=== PATIENT | male | born 1960 | race Caucasian/White ===

== ENCOUNTER 2017-03-14 15:41 | Inpatient (IN) | payer MEDICARE, MEDICAID ==
[~2017-03-14] VITALS: Ht 167.6 cm; Wt 66.4 kg
[2017-03-14] MEDS ORDERED: IPRATROPIUM 0.5MG/ALBUTEROL 2.5MG INH SOL UD 3ML (DUONEB)(J7620) NEB PRN (19:00)
[2017-03-14 19:25] VITALS: BP 159/97
[2017-03-14 20:00] VITALS: BP 121/78
[2017-03-14] MEDS ORDERED: ASPI1TAB PO (20:12)
[2017-03-14] MEDS ORDERED: DILT1TAB3 PO (20:12)
[2017-03-14] MEDS ORDERED: ALBU17IN INH (20:12)
[2017-03-14] MEDS ORDERED: SERT-138 PO (20:12)
[2017-03-14] MEDS ORDERED: NITR4TASL SL (20:12)
[2017-03-14] MEDS ORDERED: BUSP10TA PO (20:12)
[2017-03-14] MEDS ORDERED: FURO40TA2 PO (20:12)
[2017-03-14] MEDS ORDERED: ALBU83IN INH (20:12)
[2017-03-14 20:18] LABS: BASO % 0.1 % (0.0-1.0); LARGE UNSTAINED CELL % 0.2 % (0.0-4.0); LYMPH # 0.3 K/mm3 (1.5-4.5); LYMPH % 4.2 % (24.0-44.0); MEAN CORPUSCULAR HEMOGLOBIN 31.5 pg (27.0-33.0); MEAN CORPUSCULAR HGB CONC 33.8 g/dl (32.0-36.5); MEAN CORPUSCULAR VOLUME 93.2 fl (80.0-96.0); MONO # 0.3 K/mm3 (0.0-0.8); MONO % 3.2 % (0.0-5.0); NEUTROPHILS # 7.3 K/mm3 (1.8-7.7); NEUTROPHILS % 92.3 % (36.0-66.0); PLATELET COUNT, AUTOMATED 141 k/mm3 (150-450); RED CELL DISTRIBUTION WIDTH 13.1 % (11.5-14.5)
[2017-03-14 20:20] LABS: INR 1.04
[2017-03-14 20:28] LABS: ALBUMIN/GLOBULIN RATIO 1.38 (1.00-1.93); ALKALINE PHOSPHATASE 70 U/L (45-117); ALT/SGPT 25 U/L (12-78); AST/SGOT 46 U/L (15-37); BILIRUBIN,TOTAL 0.4 MG/DL (0.2-1.0); BLOOD UREA NITROGEN 16 MG/DL (7-18); CALCIUM LEVEL 9.3 MG/DL (8.5-10.1); CHLORIDE LEVEL 83 MEQ/L (98-107); CHOLESTEROL LEVEL 159 MG/DL (< 200); CREATININE FOR GFR 1.12 MG/DL (0.70-1.30); GLOMERULAR FILTRATION RATE > 60.0 (>56); GLUCOSE, FASTING 140 MG/DL (70-105); MAGNESIUM LEVEL 1.7 MG/DL (1.8-2.4); PHOSPHORUS LEVEL 2.8 MG/DL (2.5-4.9); POTASSIUM SERUM 3.5 MEQ/L (3.5-5.1); SODIUM LEVEL 134 MEQ/L (136-145); THYROXINE (T4) 7.3 UG/DL (4.5-12.0); TOTAL PROTEIN 6.9 GM/DL (6.4-8.2); TRIGLYCERIDES LEVEL 75 MG/DL (<150)
[2017-03-14 20:30] VITALS: BP 128/90
[2017-03-14 20:34] LABS: T UPTAKE 35 % (33-40)
[2017-03-14] MEDS: IPRATROPIUM 0.5MG/ALBUTEROL 2.5MG INH SOL UD 3ML (DUONEB)(J7620) NEB SCH (20:40)
[2017-03-14 21:00] VITALS: BP 130/71
[2017-03-14 21:01] LABS: ANION GAP 2 MEQ/L (8-16); CARBON DIOXIDE LEVEL 49 MEQ/L (21-32)
[2017-03-14 21:09] LABS: ABG PARTIAL PRESSURE O2 92.6 mmHg (75.0-100.0); ABG TOTAL CO2 47.4 MEQ/L (22.0-29.0); ABG pH (ARTERIAL) 7.383 UNITS (7.350-7.450)
[2017-03-14 21:11] LABS: ABG PARTIAL PRESSURE CO2 77.3 mmHg (35.0-45.0)
[2017-03-14] MEDS ORDERED: POTASSIUM CHLORIDE 10 MEQ SR TABLET PO ONE (21:30)
[2017-03-14] MEDS ORDERED: MAG SULF 1GM/100ML (MAG RUN) 1 GM in APPROPRIATE DILUENT 1 EA IV ONE (21:45)
[2017-03-14] MEDS ORDERED: NITROGLYCERIN 0.4 MG SUBL TABLET SL PRN (22:30)
[2017-03-14 23:00] VITALS: BP 149/76
[2017-03-14] MEDS: FUROSEMIDE 40 MG TAB PO SCH (23:00)
[2017-03-14] MEDS: busPIRone 10 MG TAB PO SCH (23:00)
--- NOTE | 2017-03-14 23:07 | HPEPDOC ---
General Date of Admission Mar 14, 2017 at 19:21 Other Providers Primary care provider: Dr. Gray in [place], [place] Bluing Oven Tender: Dr. Martinez in [facility] Database Modeler: Dr. Reyes in [facility] Chief Complaint The patient is a 56-year-old male admitted with a reason for visit of Respiratory Distress. Source: Patient, Family Exam Limitations: No limitations History of Present Illness Mr. Pham is a 56-year-old male who was [facility] to [facility]. He had been having some respiratory distress and anxiety yesterday morning, therefore he had taken some additional doses of Ativan, this clearly did not help his respiratory distress therefore he presented to the emergency department at [facility], he was given flumazenil which significantly improved his symptoms. He was admitted overnight, and apparently was still lethargic and had low saturations in the morning, therefore he was transferred to [facility] for evaluation by director sanitation bureau, and for fear of impending necessity for possible intubation/ mechanical ventilation. Abdomen baseline, the patient is only able to ambulate perhaps 20 feet, up from the bed to the kitchen table and back really. He is on 2 L oxygen at home chronically. Apparently he has had 2 sleep studies in the past, and his director sanitation bureau and rob oliva is already arranging for him to have home CPAP , but the equipment has not arrived yet. He does see his wave guide assembler Dr. Martinez in [facility], and apparently has had an echocardiogram within the last 6 months , no known diagnosis of CHF. Home Medications Scheduled Aspirin (Aspirin 81) 81 Mg Tab, 81 MG PO DAILY, (Reported) Buspirone HCl (Buspirone HCl) 10 Mg Tab, 10 MG PO TID, (Reported) Diltiazem HCl (Diltiazem HCl ER) 240 Mg Tab, 240 MG PO DAILY, (Reported) Furosemide (Furosemide) 40 Mg Tab, 40 MG PO BID, (Reported) Sertraline HCl (Sertraline HCl) 100 Mg Tab, 200 MG PO QHS, (Reported) Scheduled PRN Albuterol Sulfate (Ventolin Hfa) 200 Puff/8 Gm Aers, 2 PUFF INH QID PRN for SHORTNESS OF BREATH, (Reported) Albuterol Sulfate (Albuterol Sulfate) 2.5 Mg/3 Ml Nebu, 2.5 MG INH Q4H PRN for SHORTNESS OF BREATH, (Reported) Nitroglycerin (Nitrostat) 0.4 Mg Subl, 0.4 MG SL Q5MP PRN for CHEST PAIN, ( Reported) Allergies Coded Allergies: Clindamycin (Verified Allergy, Mild, Chest Pain, Rash, 03/14/17) Past Medical History Medical History COPD Hypertension Anxiety Depression GERD Surgical History Knee surgery in the 80s Elbow surgery as a child Appendectomy 2010 Family History His father suffered from hypertension, diabetes mellitus, and a myocardial infarction and in his 70s. His mother apparently had a lung disease that she acquired in [place] and she was put on lots of antibiotics for many months multiple times during her life, when asked if she had tuberculosis, they are not sure. 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 He denies any asbestos exposure. Possible TB exposure from his mother as described above. Review of Symptoms Constitutional: Reports: Night Sweats, Denies: Chills, Fever Eyes: Denies: Pain, Vision change ENT: Denies: Head Aches, Ear Pain, Dysphagia Skin: Denies: Rash, Lesions, Breakdown Pulmonary: Reports: Dyspnea, Denies: Cough Cardiovascular: Denies: Chest Pain, Palpitations, Orthopnea, Paroxysmal Noc. Dyspnea, Lt Headedness Gastrointestinal: Denies: Nausea, Vomiting, Abdominal Pain, Diarrhea Genitourinary: Denies: Dysuria, Frequency, Incontinence, Retention Hematologic: Denies: Bruising, Bleeding Excessively Neurological: Denies: Weakness, Numbness, Change in speech, Confusion Psych: Reports: Mood Normal, Denies: Depression, Memory Issues Physical Examination General Exam: Positive: Alert, Cooperative, No Acute Distress Eye Exam: Positive: Conjunctiva & lids normal, EOMI, Negative: Sclera icteric ENT Exam: Positive: Atraumatic, Mucous membr. moist/pink, Pharynx Normal Neck Exam: Positive: Supple, Negative: JVD, thyromegaly Chest Exam: Positive: Diminished (significantly diminished throughout with poor air movement) Heart Exam: Positive: Tachycardic, Other (distant heart sounds) Telemetry: Positive: Tachycardia (with multiple PACs) Abdomen Exam: Positive: Normal bowel sounds, Soft, Negative: Tenderness, Hepatospenomegaly Extremity Exam: Positive: Normal pulses, Negative: Clubbing, Cyanosis, Edema Skin Exam: Positive: Nl turgor and temperature, Negative: Breakdown, Lesion Neuro Exam: Positive: Normal Speech, Cranial Nerves 3-12 NL Psych Exam: Positive: Mental status NL, Mood NL, Oriented x 3 Vital Signs Vital Signs Date Time Temp Pulse Resp B/P (MAP) Pulse Ox O2 Delivery O2 Flow Rate FiO2 03/14/17 21:00 111 130/71 (90) 03/14/17 20:30 91 03/14/17 20:00 98.6 03/14/17 19:43 Nasal Cannula 3.0 Laboratory Data Labs 24H Laboratory Tests 2 03/14/17 19:48: Lactic Acid Level 1.7, Ammonia 21 03/14/17 19:50: White Blood Count 8.0, Red Blood Count 4.29L, Hemoglobin 13.5L, Hematocrit 40.0L , Mean Corpuscular Volume 93.2, Mean Corpuscular Hemoglobin 31.5, Mean Corpuscular Hemoglobin Concent 33.8, Red Cell Distribution Width 13.1, Platelet Count 141L, Neutrophils (%) (Auto) 92.3H, Lymphocytes (%) (Auto) 4.2L, Monocytes (%) (Auto) 3.2, Eosinophils (%) (Auto) 0.0, Basophils (%) (Auto) 0.1, Neutrophils # (Auto) 7.3, Lymphocytes # (Auto) 0.3L, Monocytes # (Auto) 0.3, Eosinophils # (Auto) 0.0, Basophils # (Auto) 0.0, Large Unclassified Cells % 0.2 , Large Unclassified Cells # 0.0, Prothrombin Time 13.7, Prothromb Time International Ratio 1.04, Anion Gap 2L, Glomerular Filtration Rate > 60.0, Blood Urea Nitrogen 16, Creatinine 1.12, Sodium Level 134L, Potassium Level 3.5 , Chloride Level 83L, Carbon Dioxide Level 49H, Calcium Level 9.3, Phosphorus Level 2.8, Aspartate Amino Transf (AST/SGOT) 46H, Alanine Aminotransferase (ALT/ SGPT) 25, Lactate Dehydrogenase 185, Total Creatine Kinase 416H, Alkaline Phosphatase 70, Total Bilirubin 0.4, Triglycerides Level 75, Cholesterol Level 159, Total Protein 6.9, Albumin 4.0, Magnesium Level 1.7L, Creatine Kinase MB 2.6, Creatine Kinase MB Relative Index 0.62, Troponin I < 0.02, C-Reactive Protein, Quantitative < 0.30, B-Type Natriuretic Peptide 257H, Albumin/Globulin Ratio 1.38, Thyroid Stimulating Hormone (TSH) 1.040, Free Thyroxine Index 2.6, Thyroxine (T4) 7.3, Triiodothyronine (T3) Uptake 35 03/14/17 20:33: Blood Gas Bicarbonate Standard 40.0H, Arterial Blood pH 7.383, Arterial Blood Partial Pressure CO2 77.3*H, Arterial Blood Partial Pressure O2 92.6, Arterial Blood Total CO2 47.4H, Arterial Blood HCO3 45.0H, Arterial Blood Base Excess 16.0H, Arterial Blood Oxygen Saturation 96.7 03/14/17 20:48: Urine Appearance CLEAR, Urine Color YELLOW, Urine pH 6.0, Urine Specific [place] 1.012, Urine Protein NEGATIVE, Urine Glucose (UA) NEGATIVE, Urine Ketones NEGATIVE, Urine Urobilinogen 0.2, Urine Bilirubin NEGATIVE, Urine Leukocyte Esterase NEGATIVE, Urine Blood 1+H, Urine Nitrite NEGATIVE, Urine WBC (Auto) 3, Urine RBC (Auto) 3, Urine Hyaline Casts (Auto) 0, Urine Bacteria (Auto ) NEGATIVE, Urine Squamous Epithelial Cells 0, Urine Sperm (Auto) CBC/BMP Laboratory Tests 03/14/17 19:50 Red Blood Count 4.29 L, Mean Corpuscular Volume 93.2, Mean Corpuscular Hemoglobin 31.5, Mean Corpuscular Hemoglobin Concent 33.8, Red Cell Distribution Width 13.1, Neutrophils (%) (Auto) 92.3 H, Lymphocytes (%) (Auto) 4.2 L, Monocytes (%) (Auto) 3.2, Eosinophils (%) (Auto) 0.0, Basophils (%) (Auto ) 0.1, Neutrophils # (Auto) 7.3, Lymphocytes # (Auto) 0.3 L, Monocytes # (Auto) 0.3, Eosinophils # (Auto) 0.0, Basophils # (Auto) 0.0, Calcium Level 9.3, Phosphorus Level 2.8, Aspartate Amino Transf (AST/SGOT) 46 H, Alanine Aminotransferase (ALT/SGPT) 25, Lactate Dehydrogenase 185, Total Creatine Kinase 416 H, Alkaline Phosphatase 70, Total Bilirubin 0.4, Triglycerides Level 75, Cholesterol Level 159, Total Protein 6.9, Albumin 4.0 Microbiology Microbiology 03/14/17 Blood Culture, Received Pending 03/14/17 Blood Culture, Received Pending 03/14/17 Respiratory Virus Panel (PCR) ([facility]), Received Pending 03/14/17 Urine Culture, Received Pending Problems (1) Acute respiratory failure with hypoxia and hypercarbia Status: Acute (2) Electrolyte abnormality Status: Acute (3) COPD (chronic obstructive pulmonary disease) Status: Chronic (4) Hypertension Status: Chronic (5) Anxiety and depression Status: Chronic (6) GERD (gastroesophageal reflux disease) Status: Chronic Plan / VTE VTE Prophylaxis Ordered?: Yes Plan Plan Upon my evaluation, the patient's respiratory status appears to be significantly improved. He is still tachycardic, and is requiring oxygen. His ABG indicates chronic respiratory failure with appropriate compensation at this time. Because he is compensated, there is no need for starting him on noninvasive positive pressure ventilation at this time. We will put him on scheduled and PRN nebs, steroids, as well as his home doses of Advair and Tudorza or their equivalent from our formulary. Mag has been replaced, and a dose of potassium given as well. Respiratory panel was ordered and came back negative. Blood cultures, urine culture, and sputum cultures still pending. Just to be safe we will cycle cardiac markers 3 every 8 hours. We also already spoken with pulmonology who has already given us some recommendations, their input is greatly appreciated. Of note, the patient did fill out a most form and does wish to be a DNR (no chest compressions), but is willing to attempt a trial period of intubation and mechanical ventilation should this be necessary. GME ATTESTATION GME ATTESTATION My preceptor for this patient encounter was physically present in the building during the encounter and was fully available. As needed, all aspects of the patient interview, examination, medical decision making process, and medical care plan development were reviewed and approved by the preceptor. Preceptor is aware and concurs with the plan as stated in the body of this note and will attest to such by his/her cosignature. ATTENDING NOTE I have both independently examined this patient as well as reviewed the H&P. I have discussed in detail with the resident the findings and plan of treatment as documented in the residents note. I will continue to follow the patient and offer further guidance to the patients care as necessary during this hospital stay. ALEE Hancock MD, DO Mar 14, 2017 23:07 CURT DOLL MD Mar 15, 2017 18:39
[2017-03-14] MEDS: ADVAIR HFA 230/21MCG INHALER INH SCH (23:15)
[2017-03-14] MEDS: methylPREDNISolone INJ 125 MG/2 ML VIAL (J2930) IV SCH (23:45)
[2017-03-15] VITALS (10 sets, daily range): BP systolic 95–136; BP diastolic 67–81
[2017-03-15] MEDS: IPRATROPIUM 0.5MG/ALBUTEROL 2.5MG INH SOL UD 3ML (DUONEB)(J7620) NEB SCH ×5 (01:01→23:17)
[2017-03-15 04:49] LABS: ADD MANUAL DIFFER YES; MEAN CORPUSCULAR HEMOGLOBIN 31.6 pg (27.0-33.0); MEAN CORPUSCULAR HGB CONC 33.3 g/dl (32.0-36.5); MEAN CORPUSCULAR VOLUME 94.7 fl (80.0-96.0); PLATELET COUNT, AUTOMATED 130 k/mm3 (150-450); RED CELL DISTRIBUTION WIDTH 13.1 % (11.5-14.5)
[2017-03-15 05:04] LABS: ALBUMIN 3.3 GM/DL (3.2-5.2); ALBUMIN/GLOBULIN RATIO 1.14 (1.00-1.93); ALKALINE PHOSPHATASE 57 U/L (45-117); ALT/SGPT 25 U/L (12-78); AST/SGOT 47 U/L (15-37); BILIRUBIN,TOTAL 0.3 MG/DL (0.2-1.0); BLOOD UREA NITROGEN 17 MG/DL (7-18); CALCIUM LEVEL 8.8 MG/DL (8.5-10.1); CHLORIDE LEVEL 85 MEQ/L (98-107); CREATININE FOR GFR 0.94 MG/DL (0.70-1.30); GLOMERULAR FILTRATION RATE > 60.0 (>56); GLUCOSE, FASTING 137 MG/DL (70-105); POTASSIUM SERUM 4.1 MEQ/L (3.5-5.1); SODIUM LEVEL 137 MEQ/L (136-145); TOTAL PROTEIN 6.2 GM/DL (6.4-8.2)
[2017-03-15 05:16] LABS: ANION GAP 3 MEQ/L (8-16)
[2017-03-15 05:18] LABS: CARBON DIOXIDE LEVEL 49 MEQ/L (21-32)
[2017-03-15 05:32] LABS: BANDS 2 % (< 11)
[2017-03-15] MEDS: methylPREDNISolone INJ 125 MG/2 ML VIAL (J2930) IV SCH ×4 (06:03→23:46)
--- NOTE | 2017-03-15 07:24 | REP ---
Portable chest, 08:34 p.m., two AP views with the patient upright: The lung elise are clear. The cardiac size is normal. The manuel, mediastinum, and bony thorax are unremarkable. Impression: Negative portable chest. Signed by Kyle Fletcher MD 03/15/2017 07:15 A
[2017-03-15] MEDS: TIOTROPIUM INHALER/CAPSULE (SPIRIVA) INH SCH (07:49)
[2017-03-15] MEDS: ADVAIR HFA 230/21MCG INHALER INH SCH ×2 (07:49→19:43)
[2017-03-15] MEDS: ASPIRIN 81 MG ENTERIC TAB PO SCH (08:04)
[2017-03-15] MEDS: FUROSEMIDE 40 MG TAB PO SCH (08:04)
[2017-03-15] MEDS: busPIRone 10 MG TAB PO SCH ×3 (08:04→20:26)
[2017-03-15] MEDS: ENOXAPARIN 40 MG/0.4 ML SYRINGE (J1650) SC SCH (08:05)
[2017-03-15] MEDS: AZITHROMYCIN 250 MG TAB PO SCH (14:28)
[2017-03-15] MEDS: THEOPHYLLINE (THEO-24) 100MG SR **CAPSULE PO SCH (14:28)
--- NOTE | 2017-03-15 14:57 | IPN ---
DATE: 03/15/2017 SUBJECTIVE: Patient seen and examined in the room today. Patient still complaining about chest tightness. He feels he still needs assistance with breathing. No events noted overnight. Currently the patient's oxygen saturation is being maintained with nasal cannula 2-4 liters nasal cannula. OBJECTIVE: VITAL SIGNS: Temperature 97.4, pulse is 86, respirations 22, blood pressure 119/76, pulse oximetry 98% with 2 liters nasal cannula. GENERAL: No signs of acute distress. Alert and oriented times three. HEENT: Normocephalic, atraumatic. CARDIOVASCULAR: Distant heart sounds. Positive S1 and S2, regular rate. RESPIRATORY: Poor respiratory efforts. Very diminished breath sounds. ABDOMEN: Soft, nontender, nondistended. EXTREMITIES: No edema. No cyanosis. LABORATORY DATA: WBC 8, hemoglobin 12.8, hematocrit 38.5, platelet count 130. Sodium is 137, potassium 4.1, chloride 86, carbon dioxide 49, BUN 17, creatinine 0.94, GFR greater than 60, fasting glucose 137, calcium 8.8, magnesium 2, total bilirubin 0.3, AST 47, ALT 25, alkaline phosphatase 57, total CK is 214, Troponin I is less than 0.02. C-reactive protein is less than 0.3. Total protein 6.2. Albumin 3.3. Blood cultures are pending. ASSESSMENT/PLAN: 1. Acute on chronic respiratory failure with hypoxia and hypercapnia. The patient's current symptoms are probably due to the Ativan the patient received prior to current hospitalization. The patient was observed in the ICU overnight. The patient does not require escalation of the oxygen support. Director Of Search Engine Optimization Dr. Chandler has been assisting on the case. 2. Chronic obstructive pulmonary disease (COPD). At baseline, patient is using 2 liters nasal cannula. Patient is currently on breathing treatments and IV steroids and azithromycin. Patient also has rebreather treatment as needed. 3. Hypertension. Blood pressure is in satisfactory range. Patient taking diltiazem 240 mg by mouth daily, Lasix 40 mg by mouth daily. 4. Anxiety/depression. Patient is on buspirone 10 mg by mouth three times a day. Due to the patient's decreased alertness and awakeness previously, Zoloft was on hold. 5. Gastroesophageal reflux disease (GERD). 6. Deep vein thrombosis (DVT) prophylaxis. Patient is on Lovenox. MTDD
--- NOTE | 2017-03-15 19:02 | ECGEPIP ---
Stationary ECG Study [facility] Test Date: 2017-03-14 Pat Name: SUZANNE GOLDSMITH Department: PCU Room: [place] [address] Gender: M Hvac Field Service Technician: [place] : 1960 Requested By: CAROLINA DE GUZMAN Order Number: [id number] Reading MD: Paulie Espinal Measurements Intervals [place] Rate: 111 P: 84 NC: 136 QRS: 73 QRSD: 83 T: 74 QT: 323 QTc: 440 Interpretive Statements SINUS TACHYCARDIA WITH FREQUENT SUPRAVENTRICULAR PREMATURE COMPLEXES ABNORMAL RHYTHM ECG No prior tracing for comparison. Clinical correlation advised Electronically Signed On 03-15-2017 19:01:47 EDT by Paulie Espinal
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
[2017-03-16 06:00] VITALS: BP 155/88
[2017-03-16] MEDS: methylPREDNISolone INJ 125 MG/2 ML VIAL (J2930) IV SCH (06:04)
[2017-03-16 06:20] LABS: BASO % 0.2 % (0.0-1.0); LARGE UNSTAINED CELL # 0.1 K/mm3 (0.0-0.4); LARGE UNSTAINED CELL % 0.4 % (0.0-4.0); LYMPH # 0.4 K/mm3 (1.5-4.5); LYMPH % 3.4 % (24.0-44.0); MEAN CORPUSCULAR HEMOGLOBIN 31.2 pg (27.0-33.0); MEAN CORPUSCULAR HGB CONC 32.6 g/dl (32.0-36.5); MEAN CORPUSCULAR VOLUME 95.7 fl (80.0-96.0); MONO # 0.4 K/mm3 (0.0-0.8); MONO % 3.6 % (0.0-5.0); NEUTROPHILS # 9.9 K/mm3 (1.8-7.7); NEUTROPHILS % 92.3 % (36.0-66.0); PLATELET COUNT, AUTOMATED 149 k/mm3 (150-450); RED CELL DISTRIBUTION WIDTH 13.1 % (11.5-14.5); WHITE BLOOD COUNT 10.7 K/mm3 (4.0-10.0)
[2017-03-16 06:36] LABS: ALBUMIN 3.4 GM/DL (3.2-5.2); ALBUMIN/GLOBULIN RATIO 1.13 (1.00-1.93); ALKALINE PHOSPHATASE 56 U/L (45-117); ALT/SGPT 27 U/L (12-78); AST/SGOT 36 U/L (15-37); BILIRUBIN,TOTAL 0.3 MG/DL (0.2-1.0); BLOOD UREA NITROGEN 23 MG/DL (7-18); CALCIUM LEVEL 9.1 MG/DL (8.5-10.1); CHLORIDE LEVEL 82 MEQ/L (98-107); CREATININE FOR GFR 0.95 MG/DL (0.70-1.30); GLOMERULAR FILTRATION RATE > 60.0 (>56); GLUCOSE, FASTING 143 MG/DL (70-105); MAGNESIUM LEVEL 2.1 MG/DL (1.8-2.4); POTASSIUM SERUM 3.7 MEQ/L (3.5-5.1); SODIUM LEVEL 134 MEQ/L (136-145); TOTAL PROTEIN 6.4 GM/DL (6.4-8.2)
[2017-03-16 06:47] LABS: CARBON DIOXIDE LEVEL 53 MEQ/L (21-32)
[2017-03-16] MEDS: TIOTROPIUM INHALER/CAPSULE (SPIRIVA) INH SCH (07:18)
[2017-03-16] MEDS: ADVAIR HFA 230/21MCG INHALER INH SCH (07:18)
[2017-03-16] MEDS: IPRATROPIUM 0.5MG/ALBUTEROL 2.5MG INH SOL UD 3ML (DUONEB)(J7620) NEB SCH (07:19)
[2017-03-16] MEDS ORDERED: THEO1TAB3 PO (08:11)
[2017-03-16] MEDS ORDERED: AZIT250T8 PO (08:11)
[2017-03-16] MEDS: ENOXAPARIN 40 MG/0.4 ML SYRINGE (J1650) SC SCH (08:37)
[2017-03-16 08:38] VITALS: BP 155/88
[2017-03-16] MEDS: ASPIRIN 81 MG ENTERIC TAB PO SCH (08:38)
[2017-03-16] MEDS: AZITHROMYCIN 250 MG TAB PO SCH (08:38)
[2017-03-16] MEDS: THEOPHYLLINE (THEO-24) 100MG SR **CAPSULE PO SCH (08:38)
[2017-03-16] MEDS: busPIRone 10 MG TAB PO SCH (08:39)
[2017-03-16] MEDS ORDERED: FUROSEMIDE 40 MG TAB PO SCH (09:00)
--- NOTE | 2017-03-16 18:30 | DSES ---
DATE OF ADMISSION: 03/14/2017 DATE OF DISCHARGE: 03/16/2017 PRIMARY CARE PROVIDER: Dr. Gray in [place], [place]. OUTPATIENT LIVESTOCK HANDLER: Dr. Reyes in [facility]. CONSULTANTS: Profiling Machine Set Up Operator Tool, Dr. Chandler PROCEDURES: None. COMPLICATIONS: None. DISCHARGE DIAGNOSES: 1. Advanced end-stage chronic obstructive pulmonary disease. Baseline oxygen requirement 2 liters. 2. Pulmonary cachexia. 3. Obstructive sleep apnea. 4. Acute on chronic respiratory failure with hypercapnia. 5. Anxiety/depression. 6. Gastroesophageal reflux disease. HOSPITALIZATION COURSE: Patient is a 56-year-old male [facility] on 03/14/2017 for upper level care. Prior to patient's admission, patient took an extra dose of Ativan. Due to concern for possible intubation/mechanical ventilation, patient was transferred to [facility] for further evaluation and treatment. After arrival, the grader operator, Dr. Chandler, has been consulted, and the patient is admitted to the intensive care unit (ICU). Prior to patient's arrival, patient also has been given flumazenil, which has improved his symptoms. Patient's medication has been adjusted with assistance with the grader operator. Patient does not show any escalation of oxygen requirement, and patient did not show the need for mechanical ventilation. On 03/16/2017, patient's physical condition returned to his baseline. Patient determined medically stable for discharge with recommendation to continue trial of new medication, and patient recommended to establish with a primary care provider in 7-10 days. It is highly recommended patient receive a pulmonary rehabilitation referral from the primary care physician (PCP). OBJECTIVE: VITAL SIGNS: Temperature is 95.9, pulse is 83, respiratory rate 18, blood pressure 155/88, pulse oximetry 92% with 2 liter nasal cannula. LABORATORY DATA: WBC 10.7, hemoglobin 13.6, hematocrit 41.7, platelet count is 149. Sodium 134, potassium 3.7, chloride is 82, carbon dioxide 53, BUN 23, creatinine 0.95, GFR greater than 60, fasting glucose 143, calcium 9.1, magnesium 2.1. Total bilirubin 0.3, AST 36, ALT 27, alkaline phosphatase 56, total protein 6.4, albumin 3.4. Microbiology: Respiratory panel is negative. Blood cultures negative after 24 hours, times two sets. Official report pending. Urine cultures show no growth clinically significant for two or more organisms. IMAGING STUDY: Chest x-ray showed negative portable chest x-ray. DISCHARGE MEDICATIONS: - trial of azithromycin 250 mg by mouth daily for 7 days - trial of theophylline 200 mg by mouth daily for 14 days. Adjust after re-evaluation by the grader operator or primary care provider. - Ventolin two puff inhalation four times a day as needed - aspirin 81 mg by mouth daily - buspirone 10 mg by mouth three times a day - diltiazem 240 mg by mouth daily - Lasix 40 mg by mouth one to two tablets daily - nitroglycerine 0.4 mg sublingual every 5 minutes as needed - sertraline 200 mg by mouth at bedtime DISCHARGE INSTRUCTIONS : Discontinue line, discharge home. Activity as tolerated. Diet as tolerated. Patient should followup with her primary care provider in 7-10 days. It is recommended patient have a referral to pulmonary rehabilitation from the PCP. It is also recommended that patient be considered for possible lung transplant if patient meets the criteria. Patient is recommended to continue short course trial of theophylline and azithromycin. Patient should be re-evaluated by the primary care provider or grader operator for the medication adjustments. DISCHARGE CONDITION: Fair. DISCHARGE TIME: Greater than 30 minutes.
== END 2017-03-16 11:52 | disposition home health service (06) | DRG 189 ==
LOC: M ICU 19:21 → M MS5PR 03-15 15:25
PROVIDERS: ADMIT Internal Medicine; ATTEND Internal Medicine
DX: J96.21 Acute and chronic respiratory failure with hypoxia (principal); J96.22 Acute and chronic respiratory failure with hypercapnia; J44.9 Chronic obstructive pulmonary disease, unspecified; I10 Essential (primary) hypertension; F41.9 Anxiety disorder, unspecified; F32.9 Major depressive disorder, single episode, unspecified; G47.33 Obstructive sleep apnea (adult) (pediatric); K21.9 Gastro-esophageal reflux disease without esophagitis; Z66 Do not resuscitate; Z99.81 Dependence on supplemental oxygen; Z79.82 Long term (current) use of aspirin; Z79.899 Other long term (current) drug therapy; Z88.1 Allergy status to other antibiotic agents; Z87.891 Personal history of nicotine dependence